=== PATIENT | male | born 1955 | race Caucasian/White ===

== ENCOUNTER 2025-03-20 17:06 | Emergency (ER) | payer MEDICARE, OTHER, SELFPAY ==
[2025-03-20 17:14] VITALS: BP 166/88
[2025-03-20 18:41] VITALS: BP 141/80
--- NOTE | 2025-03-20 18:45 | ED.GENMED ---
History of Present Illness
General
Chief Complaint: Weakness
Source: patient
Exam Limitations: none
Time Seen by Provider: 03/20/25 18:22
History of Present Illness
History of Present Illness:
69-year-old male with history of A-fib on Pradaxa which he just started 5 days ago presents with generalized weakness. He states tonight he was sitting in his chair and felt the sensation like he was going to pass out. He denies chest pain or
abdominal pain. He states the first day he took his Pradaxa 5 days ago he had several episodes of loose stool. He denies any black or tarry stools. He denies headache double vision or unilateral numbness or weakness. No fevers cough chills. No
vomiting. No other complaints
Past History
Past History
ED Past Medical History: Arrthythmia, Cancer (Prostate), HTN and Other (PE)
ED Past Surgical History: None and Urological (Prostatectomy 2019 with chemotherapy)
Social History
Tobacco: Non-smoker
Alcohol: None
Drug: None
Personal:
Living: with family
Employment: Employed (author)
Family History
Family History: Other (n/c)
Phy Exam
Physical Exam
Physical Exam:
General: Well-appearing male no acute respiratory distress
HEENT: Normocephalic atraumatic mucosa moist neck is supple
Heart: Regular rate and rhythm
Lungs: Clear no wheeze
Extremities: No cyanosis or edema
Neurologic: Normal gait conversing appropriately no drift good strength to the upper and lower extremities
Course
Orders/Labs/Results
Orders:
Orders
03/20/25 17:16
EKG [Electrocardiogram (*1)] Urgent
Reason for Study: Syncope
EKG- Treatment ONCE
03/20/25 18:51
Complete Blood Count/With Diff Urgent
Comprehensive Metabolic Panel Urgent
TSH Reflex To Free T4 Urgent
Troponin I Urgent
Abnormal Lab Results
03/20/25
18:51
RBC 4.66 L 10^6/uL
(4.70-6.10)
Abs Immat Gran (auto) 0.1 H 10^3/uL
(0-0.05)
Absolute Neuts (auto) 7.7 H 10^3/uL
(1.4-6.5)
Absolute Monos (auto) 0.7 H 10^3/uL
(0.1-0.6)
Lymphocytes % 20.2 L %
(20.5-51.1)
Glucose 127 H mg/dl
(70-99)
ALT 53 H U/L
(0-50)
03/20/25 18:51
03/20/25 18:51
Vital Signs
Initial and Last Documented VS:
Initial Vital Signs
Temp Pulse Resp BP Pulse Ox
98.0 F 61 17 166/88 99
03/20/25 17:14 03/20/25 17:14 03/20/25 17:14 03/20/25 17:14 03/20/25 17:14
Last Documented Vital Signs
Temp Pulse Resp BP Pulse Ox
98.0 F 62 17 132/69 99
03/20/25 17:14 03/20/25 20:30 03/20/25 20:30 03/20/25 20:00 03/20/25 18:48
MDM/Problems Addressed
Differential Diagnosis Includes:
Generalized weakness. No other specific complaint. No fever or cough or shortness breath. No urinary symptoms. Question anemia versus general deconditioning versus arrhythmia
EKG shows sinus bradycardia with a rate in the upper 50s of which patient states this is his baseline
*Pulse Oximetry
SaO2: 99
Oxygen Mode of Delivery: Room air
Patient hypoxic: no
*Critical Care Note
Total Time (30-74mins, 75-104mins- exclusive of procedures): Not Applicable
Update Note
Update Note:
Workup here without significant findings. No arrhythmias on the monitor. Patient states he is feeling much better he ambulated to the bathroom and feels normal. Etiology of symptoms of weakness today somewhat unclear but no indication for
admission. He did recently start a new medication, Pradaxa. Patient states he is quite sensitive to medication changes unsure if this is etiology of his symptoms or not. Nonetheless no indication for admission. Stable for discharge with
follow-up with his cardiology team
ED Attending Note
-
Portions of this chart may have been created with voice recognition software.� Occasional wrong word or��sound alike� substitutions may have occurred due to the inherent limitations of voice recognition software.
Discharge Plan
Departure
Patient Disposition: Home (Routine Discharge)
Date of Disposition: 03/20/25
Time of Disposition: 20:50
Patient with high blood pressure during this ER visit?: No
Discharge Problem:
Weakness
Instructions: Generalized Weakness (DC)
Prescriptions:
No Action
aspirin 81 MG tablet,chewable
81 mg PO DAILY
atorvastatin 40 MG tablet
20 mg PO DAILY
ramipril 10 MG capsule
20 mg PO DAILY
latanoprost 0.005 % Drops
1 drp BOTH EYES HS
diltiazem HCl 180 mg Capsule,Extended Release 24 Hr
180 mg PO DAILY
meclizine 25 mg Tablet
25 mg PO TIDPRN PRN (Reason: DIZZINESS)
omeprazole 20 mg Capsule,Delayed Release(Dr/Ec)
20 mg PO DAILYPRN PRN (Reason: GERD)
acetaminophen [Tylenol Extra Strength] 500 mg Tablet
1,000 mg PO Q6HPRN PRN (Reason: MILD PAIN)
docusate sodium [Colace] 100 mg Capsule
200 mg PO DAILY
oxycodone 5 mg Tablet
5 mg PO Q4HPRN PRN (Reason: SEVERE PAIN)
Refresh Optive 0.5-0.9 % Drops
1 drp BOTH EYES BIDPRN PRN (Reason: DRY EYES)
Eliquis 2.5 mg Tablet
2.5 mg PO BID
sennosides [senna] 8.6 mg tablet
8.6 mg PO HS Qty: 30 0RF
Referrals:
Alberto Cardona MD [Family Provider, Family Practice]
Activity Restrictions/Additional Instructions:
Return here for worsening symptoms otherwise follow-up with your doctors.
Interventions
Interventions:
*Risk Screen - Suicide Last Done: 03/20/25 17:16
*General Assessment Last Done: 03/20/25 17:16
*Neglect/Abuse Screening Last Done: 03/20/25 17:16
*ED COVID-19 Vaccine History Last Done: 03/20/25 17:16
ED- Cardiac Assessment Last Done: 03/20/25 19:15
ED- Neurological Assessment Last Done: 03/20/25 19:15
ED- Pulmonary Assessment Last Done: 03/20/25 19:15
Discharge Date and Time
Print Language: MONEGASQUE
[2025-03-20 19:00] VITALS: BP 145/86
[2025-03-20 19:00] LABS: Hematocrit 41.0 % (39.0-52.0); Hemoglobin 14.4 g/dL (13.0-18.0); Mean Corp Hgb Conc. 35.1 g/dL (33.0-37.0); Mean Corpuscular Volume 88.0 fL (80.0-94.0); Nucleated Red Blood Cells % 0 % (-); Platelet Count 189 10^3/uL (130-400); Red Cell Dist. Width 13.7 % (11.5-14.5)
[2025-03-20 19:14] LABS: ALT (SGPT) 53 U/L (0-50); AST (SGOT) 28 U/L (17-59); Albumin 4.4 g/dl (3.5-5.0); Alkaline Phosphatase 67 U/L (38-126); Blood Urea Nitrogen 14 mg/dl (9-20); Calcium 10.0 mg/dl (8.4-10.2); Carbon Dioxide 28 mmol/L (22-30); Chloride 102 mmol/L (98-107); Glucose 127 mg/dl (70-99); Potassium 4.0 mmol/L (3.5-5.1); Sodium 138 mmol/L (135-145); Total Protein 7.1 g/dl (6.3-8.2); eGFR > 60.00
[2025-03-20 19:27] LABS: Troponin I < 0.012 ng/ml
[2025-03-20 20:00] VITALS: BP 132/69
== END 2025-03-20 20:56 | disposition home or self-care (01) ==
LOC: EMR 17:06
PROVIDERS: Physician Assistant; EMERGENCY PHYSICIAN Emergency Medicine; FAMILY PHYSICIAN Family Medicine
DX: R53.1 Weakness (principal); R00.1 Bradycardia, unspecified; I10 Essential (primary) hypertension; I48.91 Unspecified atrial fibrillation; Z79.01 Long term (current) use of anticoagulants; Z90.79 Acquired absence of other genital organ(s); Z85.46 Personal history of malignant neoplasm of prostate
CPT/HCPCS: 99284; 80053; 84443; 84484; 85025; 93005